=== PATIENT | female | born 1975 | race African-American/Black ===

== ENCOUNTER 2024-06-13 18:26 | Emergency (ER) | payer MEDICAID, OTHER ==
[~2024-06-13] VITALS: Ht 157.5 cm; Wt 73.0 kg
[2024-06-13 18:40] VITALS: O2SAT 99
[2024-06-13 18:59] VITALS: BP 105/62; PULSE 80; RESP 18; TEMP 97.9; O2SAT 96
[2024-06-13 19:28] LABS: BASOPHILS % 0.6 % (0.0-2.0); EOSINOPHILS % 0.2 % (0.0-5.0); LYMPHOCYTES % 25.7 % (20.0-50.0); MEAN CORPUSCULAR HEMOGLOBIN 19.5 pg (28.0-32.0); MEAN CORPUSCULAR HGB CONC 30.2 g/dL (31.0-37.0); MEAN CORPUSCULAR VOLUME 64.7 fL (81.0-99.0); MEAN PLATELET VOLUME 7.8 fl (7.4-10.4); MONOCYTES % 11.2 % (2.0-8.0); NEUTROPHILS % 62.3 % (40.0-76.0); PLATELET 467 x1000/uL (130-400); RED BLOOD CELL COUNT 2.76 mill/uL (4.2-5.4); RED CELL DISTRIBUTION WIDTH 18.5 % (11.6-14.6)
[2024-06-13 19:33] LABS: CARBON DIOXIDE 24 mEq/L (21-32); CHLORIDE 107 mEq/L (98-107); POTASSIUM 3.4 mEq/L (3.5-5.1); SODIUM 137 mEq/L (136-145)
[2024-06-13 19:34] LABS: CALCIUM 8.9 mg/dL (8.7-10.4)
[2024-06-13 19:39] LABS: GLUCOSE 88 mg/dL (70-105); UREA NITROGEN BLOOD 13 mg/dL (9-23)
[2024-06-13 19:47] LABS: DIFFERENTIAL COMMENT 1
[2024-06-13 19:50] LABS: ADD RBC MORPHOLOGY YES; HEMATOCRIT. 17.9 % (36.0-48.0); HEMOGLOBIN. 5.4 g/dL (12.0-16.0)
[2024-06-13 20:09] LABS: ANISOCYTOSIS 1+; HYPOCHROMASIA 2+; MICROCYTOSIS 3+; OVALOCYTES 1+; PLATELET ESTIMATE INCREASED
== END 2024-06-13 23:06 | disposition left against medical advice (07) ==
LOC: ER 18:26
DX: R68.89 Other general symptoms and signs (principal); Z53.21 Procedure and treatment not carried out due to patient leaving prior to being seen by health care provider
CPT/HCPCS: 36415; 80048; 85025; 86850; 86900